=== PATIENT | female | born 1985 | race Caucasian/White ===

== ENCOUNTER 2020-01-21 11:16 | Outpatient (CLI) | payer BC | END 2020-01-21 23:59 | disposition home or self-care (01) | LOC: STAR 11:16 | PROVIDERS: ATTEND Orthopaedic Surgery | DX: Z11.59 Encounter for screening for other viral diseases (principal) | CPT/HCPCS: U0001-CS ==

== ENCOUNTER 2020-01-25 13:33 | Day surgery (SDC) | payer BC ==
[~2020-01-25] VITALS: Ht 160 cm; Wt 86.0 kg
[2020-01-25] MEDS ORDERED: FENTANYL PF 100 MCG/2ML ONE ×4 (13:52→19:14)
[2020-01-25] MEDS ORDERED: MIDAZOLAM 1 MG/ML, 2ML ONE (13:52)
[2020-01-25] MEDS ORDERED: LACTATED RINGERS 1,000 ML IV SCH (14:03)
[2020-01-25] MEDS ORDERED: CHLORHEXIDINE 15 ML UDC MM ONE (14:05)
[2020-01-25] MEDS ORDERED: CHLORHEXIDINE 15 ML UDC ONE (14:07)
[2020-01-25 14:29] LABS: HCG UR SG 1.021 (1.003-1.030)
[2020-01-25] MEDS ORDERED: SUGAMMADEX 200 MG/2 ML IVPush ONE (15:36)
[2020-01-25] MEDS ORDERED: hydrALAzine 20 MG/ML, 1ML IV PRN (16:30)
[2020-01-25] MEDS ORDERED: ALBUTEROL SULFATE 2.5 MG/3 ML NPPB PRN (16:30)
[2020-01-25] MEDS ORDERED: MEPERIDINE/PF 25MG/0.5ML IVPush PRN (16:30)
[2020-01-25] MEDS ORDERED: DIAZEPAM 5 MG/ML, 2ML IVPush PRN (16:30)
[2020-01-25] MEDS ORDERED: KETOROLAC 30 MG/1 ML IV PRN (16:30)
[2020-01-25] MEDS ORDERED: LABETALOL 5MG/ML, 20ML IV PRN (16:30)
[2020-01-25] MEDS ORDERED: ACETAMINOPHEN 325 MG TABLET PO PRN (16:30)
[2020-01-25] MEDS ORDERED: OXYcodone 5 MG/5 ML ORAL.SOL UDC PO PRN (16:30)
[2020-01-25] MEDS ORDERED: PROMETHAZINE 25 MG/ML, 1ML IV PRN (16:30)
[2020-01-25] MEDS ORDERED: HYDROmorphone 2 MG/ML, 1ML IVPush PRN (16:30)
[2020-01-25] MEDS ORDERED: VANCOMYCIN 500 MG ONE (17:23)
[2020-01-25] MEDS ORDERED: NEOSTIGMINE 1 MG/ML, 10ML ONE (18:18)
[2020-01-25] MEDS ORDERED: CEFAZOLIN 1,000 MG ONE (18:18)
[2020-01-25] MEDS ORDERED: PROPOFOL 10 MG/ML, 20ML ONE (18:18)
[2020-01-25] MEDS ORDERED: SUCCINYLCHOLINE 20 MG/ML, 10ML ONE (18:18)
[2020-01-25] MEDS ORDERED: ROCURONIUM 10MG/ML,5ML ONE (18:18)
[2020-01-25] MEDS ORDERED: ONDANSETRON 2MG/ML, 2ML ONE (18:18)
[2020-01-25] MEDS ORDERED: DEXAMETHASONE 4 MG/ML, 1ML ONE (18:18)
[2020-01-25] MEDS ORDERED: GLYCOPYRROLATE 0.2MG/1ML, 5ML ONE (18:18)
[2020-01-25] MEDS ORDERED: MEPERIDINE/PF 50 MG/ML ONE (18:48)
[2020-01-25] MEDS ORDERED: OXYcodone 5 MG/5 ML ORAL.SOL UDC ONE (19:15)
[2020-01-25] MEDS: FENTANYL PF 100 MCG/2ML IV PRN ×2 (19:17→19:25)
[2020-01-25] MEDS ORDERED: HYDROmorphone 1 MG/ML, 1ML INJ ONE (19:31)
[2020-01-25] MEDS ORDERED: KETOROLAC 30 MG/1 ML ONE (20:03)
[2020-01-25] MEDS ORDERED: ACETAMINOPHEN 650 MG/20.3 ML UDC ONE (20:03)
== END 2020-01-25 22:00 | disposition home or self-care (01) ==
LOC: OR 13:33 → 4NE 20:15 → OR 22:00
PROVIDERS: ATTEND Orthopaedic Surgery
DX: S92.191 Other fracture of right talus (principal); Q66.11 Congenital talipes calcaneovarus, right foot; X58.XXXD Exposure to other specified factors, subsequent encounter; M25.571 Pain in right ankle and joints of right foot; M76.71 Peroneal tendinitis, right leg; Z87.891 Personal history of nicotine dependence; J45.909 Unspecified asthma, uncomplicated; Z72.89 Other problems related to lifestyle; Z91.040 Latex allergy status; Z91.048 Other nonmedicinal substance allergy status; Z98.890 Other specified postprocedural states
CPT/HCPCS: 20900; 27687; 27691; 28725; 29898; 64445; 64447; 73620; 81025; C1713; J0690; J1100; J1170; J1885; J2175; J2250; J2405; J2704; J3010; J3370; J7120; 76000; G0378; J2710; J0330